=== PATIENT | female | born 1975 | race Caucasian/White ===

== ENCOUNTER 2016-07-01 22:52 | Inpatient (IN) | payer BC ==
[~2016-07-01] VITALS: Ht 160 cm; Wt 50.8 kg
[2016-07-01] MEDS ORDERED: ESTRACE2 MG PO (23:25)
[2016-07-01] MEDS ORDERED: HUMIRA40 MG/0.1 IJ (23:26)
[2016-07-01 23:31] LABS: ALANINE AMINOTRANSFERASE 17 U/L (9-52); ALBUMIN 4.7 gm/dL (3.5-5.0); ALKALINE PHOSPHATASE 90 U/L (50-136); ANION GAP 14 mmol/L (7-16); BILIRUBIN,TOTAL 0.8 mg/dL (0.0-1.0); BLOOD UREA NITROGEN 12 mg/dL (7-17); CALCIUM 9.6 mg/dL (8.4-10.2); CARBON DIOXIDE 29 mmol/L (22-30); CHLORIDE 98 mmol/L (98-107); CREATININE, serum 0.66 mg/dL (0.52-1.25); GLUCOSE 98 mg/dL (74-106); POTASSIUM 3.5 mmol/L (3.4-5.0); SODIUM 140 mmol/L (137-145); TOTAL PROTEIN 8.2 gm/dL (6.4-8.2); TROPONIN-I < 0.012 ng/mL (0.000-0.034)
[2016-07-01 23:32] LABS: ADD PATHOLOGY DIFF REVIEW NO; HEMATOCRIT 42.3 % (37.0-47.0); HEMOGLOBIN 14.5 g/dl (12.5-16.0); MEAN CELL VOLUME 87 fl (80.0-100.0); MEAN CORPUSCULAR HEMOGLOBIN 30 pg (27.0-31.0); MEAN CORPUSCULAR HGB CONC 34 g/dl (33.0-37.0); MEAN PLATELET VOLUME 11.2 fl (7.4-10.4); PLATELET COUNT 225 K/mm3 (130-400); RED BLOOD COUNT 4.87 M/mm3 (4.10-5.30); REDCELL DISTRIBUTION WIDTH-CV 12.3 % (11.5-14.5)
[2016-07-01 23:38] LABS: BAND 4 % (0-10); EOSINOPHIL 1 % (0-4); NEUTROPHILS 32 % (42.0-75.2); PLATELET ESTIMATE NORMAL (NORMAL); TOTAL CELLS COUNTED 100
[2016-07-01 23:50] LABS: B-TYPE NATRIURETIC PEPTIDE 99 pg/mL (0-125)
[2016-07-02] VITALS (250 sets, daily range): BP systolic 108–132; BP diastolic 80–113; PULSE 67–121; TEMP 98–98.4; O2SAT 97–100
[2016-07-02 05:53] LABS: ANION GAP 13 mmol/L (7-16); BLOOD UREA NITROGEN 11 mg/dL (7-17); CALCIUM 9.5 mg/dL (8.4-10.2); CARBON DIOXIDE 27 mmol/L (22-30); CHLORIDE 100 mmol/L (98-107); CREATININE, serum 0.69 mg/dL (0.52-1.25); GLUCOSE 106 mg/dL (74-106); POTASSIUM 3.8 mmol/L (3.4-5.0); SODIUM 140 mmol/L (137-145)
[2016-07-02 06:10] LABS: TROPONIN-I < 0.012 ng/mL (0.000-0.034)
[2016-07-02] MEDS ORDERED: CARDIZEM CD 18180 MG PO (07:51)
[2016-07-02] MEDS ORDERED: ASPIRIN E.C. 8181 MG PO (07:51)
== END 2016-07-02 13:05 | disposition home or self-care (01) | DRG 310 ==
LOC: COL.ER 22:52 → IMCU 23:51 → EU 07-02 07:08 → IMCU 07-02 07:38 → EU 07-02 07:38 → IMCU 07-02 08:07 → EU 07-02 08:07 → IMCU 07-02 13:05
PROVIDERS: Emergency Medicine; Family Medicine
DX: I48.91 Unspecified atrial fibrillation (principal); I10 Essential (primary) hypertension
CPT/HCPCS: 99223-AI; J1650; J7030; J7050

== ENCOUNTER → 2016-08-24 | Outpatient (CLI) | payer BC ==
[~2016-08-24] MED LIST: ASPIRIN E.C. 8181 MG PO; CARDIZEM CD 18180 MG PO; ESTRACE2 MG PO; HUMIRA40 MG/0.1 IJ
== END ==
LOC: COL.RAD 09:26
DX: I71.4 Abdominal aortic aneurysm, without rupture (principal); K80.80 Other cholelithiasis without obstruction
CPT/HCPCS: Q9967

== ENCOUNTER → 2017-12-20 | Outpatient (CLI) | payer BC | LOC: COL.RAD 11:08 | DX: K80.20 Calculus of gallbladder without cholecystitis without obstruction (principal); K80.80 Other cholelithiasis without obstruction ==

== ENCOUNTER 2018-01-03 05:35 | Day surgery (SDC) | payer BC ==
[~2018-01-03] VITALS: Ht 160 cm; Wt 53.6 kg
[2018-01-03] VITALS (7 sets, daily range): BP systolic 123–133; BP diastolic 84–96; PULSE 89–105; TEMP 97.6–98
[~2018-01-03 05:35] MED LIST changes: -HUMIRA40 MG/0.1 IJ; +HUMIRA40 MG/0.8 SQ
[2018-01-03] MEDS ORDERED: PRINIVIL20 MG PO (05:55)
[2018-01-03] MEDS ORDERED: COLACE 100100 MG/CAP PO (08:55)
[2018-01-03] MEDS ORDERED: MOTRIN 600600 MG/TAB PO (08:55)
[2018-01-03] MEDS ORDERED: PERCOCET 325 MG1 TA2 PO (08:56)
== END 2018-01-03 11:57 | disposition home or self-care (01) ==
LOC: SDCO 05:35
DX: K80.10 Calculus of gallbladder with chronic cholecystitis without obstruction (principal); I48.91 Unspecified atrial fibrillation; I10 Essential (primary) hypertension; E78.00 Pure hypercholesterolemia, unspecified; Z90.710 Acquired absence of both cervix and uterus; Z79.82 Long term (current) use of aspirin; Z79.4 Long term (current) use of insulin
CPT/HCPCS: J0690; J1100; J1885; J2405; J2550; J2704; J3010; J7120; Q9967

== ENCOUNTER → 2019-01-19 | Outpatient (CLI) | payer BC ==
[~2019-01-19] MED LIST changes: +COLACE 100100 MG/CAP PO; +MOTRIN 600600 MG/TAB PO; +PERCOCET 325 MG1 TA2 PO; +PRINIVIL20 MG PO
== END ==
LOC: MC.RAD 07:03
DX: Z12.31 Encounter for screening mammogram for malignant neoplasm of breast (principal)

== ENCOUNTER 2019-01-30 21:32 | Emergency (ER) | payer BC ==
[~2019-01-30] VITALS: Ht 160 cm; Wt 52.3 kg
[2019-01-30 21:36] VITALS: TEMP 98
[2019-01-30 22:38] LABS: BASO % 0.2 % (0.0-2.0); EOS # 0.1 (0.0-0.7); EOS % 0.8 % (0-4.0); GRAN # 10.9 (1.4-6.5); GRAN % 68.4 % (42.2-75.2); HEMATOCRIT 43.7 % (37.0-47.0); HEMOGLOBIN 14.8 g/dl (12.5-16.0); LYMPH # 3.9 (1.2-3.4); LYMPH % 24.3 % (20.0-51.0); MEAN CELL VOLUME 88 fl (80.0-100.0); MEAN CORPUSCULAR HEMOGLOBIN 30 pg (27.0-31.0); MEAN CORPUSCULAR HGB CONC 34 g/dl (33.0-37.0); MEAN PLATELET VOLUME 11.3 fl (7.4-10.4); MONO # 0.9 (0.1-0.6); MONO % 5.9 % (1.7-9.3); PLATELET COUNT 240 K/mm3 (130-400); RED BLOOD COUNT 4.99 M/mm3 (4.10-5.30); REDCELL DISTRIBUTION WIDTH-CV 12.3 % (11.5-14.5)
[2019-01-30 22:49] LABS: ALBUMIN 4.3 gm/dL (3.5-5.0); BILIRUBIN,TOTAL 0.7 mg/dL (0.0-1.0); C-REACTIVE PROTEIN 0.8 mg/dL (0.0-0.9); CALCIUM 9.6 mg/dL (8.4-10.2); CREATININE, serum 0.67 (0.52-1.25); POTASSIUM 3.5 mmol/L (3.4-5.0); TOTAL PROTEIN 7.5 gm/dL (6.4-8.2)
[2019-01-30] MEDS ORDERED: AMOXICILLIN 8751 TAB PO (23:58)
[2019-01-31] MEDS ORDERED: ZOFRAN ODT8 MG PO (00:06)
[2019-01-31 00:27] VITALS: BP 127/86; PULSE 93
== END 2019-01-31 00:27 | disposition home or self-care (01) ==
LOC: COL.ER 21:32
PROVIDERS: Emergency Medicine
DX: K52.9 Noninfective gastroenteritis and colitis, unspecified (principal); I10 Essential (primary) hypertension; E78.5 Hyperlipidemia, unspecified; L40.9 Psoriasis, unspecified; Z90.49 Acquired absence of other specified parts of digestive tract; Z90.710 Acquired absence of both cervix and uterus; Z88.8 Allergy status to other drugs, medicaments and biological substances; Z79.82 Long term (current) use of aspirin
CPT/HCPCS: C9113; J2405; J3010; J7030; Q9967

== ENCOUNTER → 2019-02-01 | Outpatient (CLI) | payer BC ==
[~2019-02-01] MED LIST changes: +AMOXICILLIN 8751 TAB PO; +ZOFRAN ODT8 MG PO
== END ==
LOC: COL.RAD 09:19
DX: R18.8 Other ascites (principal); Z90.49 Acquired absence of other specified parts of digestive tract

== ENCOUNTER → 2021-02-12 | Outpatient (CLI) | payer BC | LOC: MC.RAD 07:47 | DX: Z12.31 Encounter for screening mammogram for malignant neoplasm of breast (principal) ==

== ENCOUNTER 2021-04-10 05:58 | Day surgery (SDC) | payer BC ==
[~2021-04-10] VITALS: Ht 160 cm; Wt 53.1 kg
[2021-04-10 06:26] VITALS: BP 119/85; PULSE 97; TEMP 96.9
[2021-04-10] MEDS ORDERED: PRIL40 PO (06:47)
[2021-04-10] MEDS ORDERED: VALTREX1 GM PO (06:48)
[2021-04-10 07:35] VITALS: BP 108/74; PULSE 80; TEMP 97
--- NOTE | 2021-04-10 07:35 | NUR ---
PT TO [facility] VIA CART FROM [facility], PT WALKED TO CHAIR, NO C/O, CALL LIGHT IN REACH. TAKES SNACK
[2021-04-10 07:50] VITALS: BP 108/75; PULSE 77
[2021-04-10 08:05] VITALS: BP 110/78; PULSE 88
--- NOTE | 2021-04-10 08:10 | NUR ---
pt up to b/r, in earlier, IV d'cd intact, pt dressed. reviewed discharge inst. with pt with verbal understanding. 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
== END 2021-04-10 08:10 | disposition home or self-care (01) ==
LOC: SDCO 05:58
DX: Z12.11 Encounter for screening for malignant neoplasm of colon (principal); I10 Essential (primary) hypertension; I48.91 Unspecified atrial fibrillation; E78.5 Hyperlipidemia, unspecified; Z79.899 Other long term (current) drug therapy
CPT/HCPCS: J2704; J7120